=== PATIENT | female | born 1960 | race Caucasian/White ===

== ENCOUNTER → 2016-09-02 | Outpatient (CLI) | payer OTHER ==
[~2016-09-02] MED LIST: ALBU6.7H4 IH; CITA-51 PO; CYCL-83 PO; GADOBUTROL 10mMol/10ml INJECTION IV ONE; SALINE FLUSH 10ml SYRINGE ONE; [UNRECOGNIZED DRUG - CODE] PO
--- NOTE | 2016-09-03 09:19 | DI ---
Indication: ITS.REASON: M54.17 Radiculopathy, lumbosacral region MRI LUMBAR SPINE W/WO CONTRAST: Comparison: 03/15/2011 Technique: T1 and T2-weighted image sequences in longitudinal and axial image planes. Findings: Patient shows no acute vertebral body fractures or marked abnormal signal within any of the bony vertebral bodies. Patient shows a grade 1 spondylolisthesis of L5 on S1. Axial imaging L1-2 disc space is unremarkable. L2-3 disc space is unremarkable. L3-4 disc space shows mild broad-based bulging causing slight effacement of the epidural fat without significant spinal stenosis with just mild left-sided neural foraminal narrowing. L4-5 shows degenerative changes within the disc with loss of usual bright signal and overall disc space narrowing with mild broad-based bulging causing no marked stenosis but mild neural foraminal narrowing. L5-S1 shows mild broad-based bulging without stenosis or neural foraminal narrowing. Impression: 1. Patient shows just mild degenerative disc changes with broad-based bulging and slight neural foraminal narrowing without significant spinal stenosis. 2. Grade 1 spondylolisthesis of L5 on S1 3. No suggestion of fracture or abnormal signal within the vertebral bodies. .
== END ==
LOC: IMA.MDS 15:58
PROVIDERS: ATTEND Physician Assistant Medical
DX: M51.16 Intervertebral disc disorders with radiculopathy, lumbar region (principal); M43.17 Spondylolisthesis, lumbosacral region